=== PATIENT | male | born 1945 | race Caucasian/White ===

== ENCOUNTER → 2017-04-05 | Outpatient (CLI) | payer OTHER ==
[2017-04-05 10:32] LABS: MEAN CORPUSCULAR HEMOGLOBIN 31.2 pg (27.0-33.0); MEAN CORPUSCULAR HGB CONC 34.9 g/dl (32.0-36.5); MEAN CORPUSCULAR VOLUME 89.6 fl (80.0-96.0); RED CELL DISTRIBUTION WIDTH 13.3 % (11.5-14.5); WHITE BLOOD COUNT 7.4 K/mm3 (4.0-10.0)
[2017-04-12 00:06] LABS: SJOGREN'S ANTI SS-A <0.2 AI (0.0-0.9); SJOGREN'S ANTI SS-B <0.2 AI (0.0-0.9); T PALLIDUM AB (FTA-AB) Non Reactive (Non Reactive)
== END ==
LOC: M LAB 09:44
PROVIDERS: ATTEND Ophthalmology
DX: H18.899 Other specified disorders of cornea, unspecified eye (principal); Z79.899 Other long term (current) drug therapy

== ENCOUNTER → 2017-04-28 | Day surgery (SDC) | payer OTHER ==
[~2017-04-28] VITALS: Ht 172.7 cm; Wt 81.6 kg
[~2017-04-28] MED LIST: BALANCED SALT IRRIGATION SOLUTION 500ML BAG (FOR OR EYE MACHINE) As Ordered ONE; BESI0.6S OU; DORZ2OPD OU; DOXY50CA PO; LATA5OPD OU; LIDOCAINE 2% W/EPIN INJ 20ML **PRES FREE As Ordered ONE; LIDOCAINE 4% INJ 5 ML AMP As Ordered ONE; LR 1,000 ML IV SCH; MIDAZOLAM INJ 2 MG/2 ML VIAL (J2250) As Ordered ONE; OFLOXACIN 0.3 % (OCUFLOX) OPTH SOL 5ML As Ordered ONE; OFLOXACIN 0.3 % (OCUFLOX) OPTH SOL 5ML OS ONE; PHENYLEPHRINE 2.5% OPHTH SOL 2ML OS ONE; POVIDONE-IODINE 5% OPHTH PREP SOL 30ML As Ordered ONE; PRED20TA PO; PREV15CA PO; PROPARACAINE 0.5% OPHTH SOL 15ML OS ONE; TOBRADEX OPHTH OINT 3.5 GM As Ordered ONE; TROPICAMIDE 1% OPHTH SOLN 2ML OS ONE; TYLE325T5 PO; fentaNYL 100 MCG/2 ML INJECTION (J3010) As Ordered ONE
[2017-04-28 17:59] VITALS: BP 146/78
--- NOTE | 2017-04-30 07:43 | RO ---
DATE OF PROCEDURE: 04/28/2017 PREOPERATIVE DIAGNOSIS: Corneal melt of the left eye. POSTOPERATIVE DIAGNOSIS: Corneal melt of the left eye. PROCEDURE: Conjunctival resection, placement of multilayered amniotic membrane, temporary tarsorrhaphy of the left eye. SURGEON: Jim Vazquez D.O. SOFTWARE TEST AND VALIDATION ENGINEER: ANESTHESIA: Local with monitored anesthesia care (MAC), subconjunctival (2% lidocaine with epinephrine). DESCRIPTION OF PROCEDURE: The patient was identified in the preoperative area. Consents were reviewed, and the correct eye was marked. The patient was then transferred to the operating room. The eye was prepped and draped in a sterile fashion. The eyelids were isolated with Tegaderm, and a wide lid speculum was placed. A bandage contact lens was removed from the eye and discarded. Two conjunctival wedge resections were performed of approximately 3 x 3 mm in the areas of corneal thinning, and wet-field cautery was applied to the bleeders , and then the area was dried meticulously with weck mac. Two areas of corneal thinning were measured to be approximately 1.5 to 2 x 2 mm in diameter, and an amniotic membrane graft was prepared to place over these by oversizing by 2 mm. Two 2 x 2 mm grafts were cut and placed with the basement membrane facing down, and then Tissel glue was placed to adhere these to the corneal surface. The cornea size was measured to be approximately 12 x 12 mm. A large piece of amniotic membrane was prepared and measured to be approximately 12 mm and was placed basement membrane down on the entire cornea and was secured down with four 10-0 nylon sutures in the four corners, and then Tissel glue was placed to adhere it to the patient's cornea. Another layer of amniotic membrane of the same size was placed and then secured down with Tissel glue. A collagen contact lens was placed over the surface of the eye, and the wire lid speculum was removed, and the Tegaderm was removed. Using a 5-0 double-armed nylon suture, a central temporary tarsorrhaphy was performed and tied into position. The patient was then discharged to the postoperative care unit in a stable condition. PING
== END | disposition home or self-care (01) ==
LOC: M SDC 15:49
PROVIDERS: ATTEND Ophthalmology
DX: H18.892 Other specified disorders of cornea, left eye (principal); H40.9 Unspecified glaucoma; E11.9 Type 2 diabetes mellitus without complications; K21.9 Gastro-esophageal reflux disease without esophagitis; M54.9 Dorsalgia, unspecified; M25.559 Pain in unspecified hip; Z79.899 Other long term (current) drug therapy; I49.3 Ventricular premature depolarization; Z87.891 Personal history of nicotine dependence
CPT/HCPCS: 65780; 67875; C1762; J2250; J3010

== ENCOUNTER → 2017-07-07 | Outpatient (REF) | payer OTHER ==
[~2017-07-07] MED LIST changes: -BALANCED SALT IRRIGATION SOLUTION 500ML BAG (FOR OR EYE MACHINE) As Ordered ONE; -LIDOCAINE 2% W/EPIN INJ 20ML **PRES FREE As Ordered ONE; -LIDOCAINE 4% INJ 5 ML AMP As Ordered ONE; -LR 1,000 ML IV SCH; -MIDAZOLAM INJ 2 MG/2 ML VIAL (J2250) As Ordered ONE; -OFLOXACIN 0.3 % (OCUFLOX) OPTH SOL 5ML As Ordered ONE; -OFLOXACIN 0.3 % (OCUFLOX) OPTH SOL 5ML OS ONE; -PHENYLEPHRINE 2.5% OPHTH SOL 2ML OS ONE; -POVIDONE-IODINE 5% OPHTH PREP SOL 30ML As Ordered ONE; -PROPARACAINE 0.5% OPHTH SOL 15ML OS ONE; -TOBRADEX OPHTH OINT 3.5 GM As Ordered ONE; -TROPICAMIDE 1% OPHTH SOLN 2ML OS ONE; -fentaNYL 100 MCG/2 ML INJECTION (J3010) As Ordered ONE
[2017-07-07 15:58] LABS: ALBUMIN 3.8 GM/DL (3.2-5.2); ALBUMIN/GLOBULIN RATIO 1.41 (1.00-1.93); ALKALINE PHOSPHATASE 73 U/L (45-117); ALT/SGPT 45 U/L (12-78); ANION GAP 11 MEQ/L (8-16); AST/SGOT 18 U/L (15-37); BILIRUBIN,TOTAL 0.5 MG/DL (0.2-1.0); BLOOD UREA NITROGEN 16 MG/DL (7-18); CALCIUM LEVEL 8.8 MG/DL (8.8-10.2); CARBON DIOXIDE LEVEL 26 MEQ/L (21-32); CHLORIDE LEVEL 108 MEQ/L (98-107); CREATININE FOR GFR 0.96 MG/DL (0.70-1.30); GLOMERULAR FILTRATION RATE > 60.0 (>42); GLUCOSE, FASTING 108 MG/DL (83-110); POTASSIUM SERUM 4.5 MEQ/L (3.5-5.1); SODIUM LEVEL 145 MEQ/L (136-145); TOTAL PROTEIN 6.5 GM/DL (6.4-8.2)
[2017-07-07 16:00] LABS: BASO # 0.1 K/mm3 (0.0-0.2); BASO % 0.7 % (0.0-1.0); EOS % 0.1 % (0.0-3.0); LARGE UNSTAINED CELL # 0.1 K/mm3 (0.0-0.4); LARGE UNSTAINED CELL % 0.8 % (0.0-4.0); LYMPH # 0.9 K/mm3 (1.5-4.5); LYMPH % 9.7 % (24.0-44.0); MEAN CORPUSCULAR HEMOGLOBIN 31.6 pg (27.0-33.0); MEAN CORPUSCULAR HGB CONC 33.3 g/dl (32.0-36.5); MEAN CORPUSCULAR VOLUME 94.8 fl (80.0-96.0); MONO # 0.3 K/mm3 (0.0-0.8); MONO % 3.4 % (0.0-5.0); NEUTROPHILS % 85.2 % (36.0-66.0); PLATELET COUNT, AUTOMATED 214 k/mm3 (150-450); RED CELL DISTRIBUTION WIDTH 16.6 % (11.5-14.5); WHITE BLOOD COUNT 8.2 K/mm3 (4.0-10.0)
[2017-07-07 16:28] LABS: ERYTHROCYTE SEDIMENTATION RATE 20 mm/hr (0-20)
[2017-07-14 14:25] LABS: VARICELLA ZOSTER VIRUS PCR Negative (Negative)
== END ==
LOC: M SFHCPLAZ 12:48
PROVIDERS: ATTEND Internal Medicine Infectious Disease
DX: R21 Rash and other nonspecific skin eruption (principal)
CPT/HCPCS: 36415; 80053; 85025; 85652; 86140; 86695; 86696; 87529; 87798; G0463

== ENCOUNTER → 2018-05-24 | Outpatient (CLI) | payer OTHER ==
[2018-05-24 09:10] LABS: HEMATOCRIT 47.2 % (42.0-52.0); MEAN CORPUSCULAR HEMOGLOBIN 29.9 pg (27.0-33.0); MEAN CORPUSCULAR HGB CONC 33.9 g/dl (32.0-36.5); MEAN CORPUSCULAR VOLUME 88.2 fl (80.0-96.0); PLATELET COUNT, AUTOMATED 204 10^3/uL (150-450); RED BLOOD COUNT 5.35 10^6/uL (4.30-6.10); WHITE BLOOD COUNT 6.5 10^3/uL (4.0-10.0)
[2018-05-24 09:34] LABS: ALBUMIN 4.3 GM/DL (3.2-5.2); ALKALINE PHOSPHATASE 85 U/L (45-117); ALT/SGPT 29 U/L (12-78); ANION GAP 6 MEQ/L (8-16); AST/SGOT 19 U/L (7-37); BILIRUBIN,TOTAL 0.4 MG/DL (0.2-1.0); BLOOD UREA NITROGEN 15 MG/DL (7-18); CALCIUM LEVEL 9.2 MG/DL (8.8-10.2); CARBON DIOXIDE LEVEL 31 MEQ/L (21-32); CHLORIDE LEVEL 108 MEQ/L (98-107); GLOMERULAR FILTRATION RATE > 60.0 (>42); GLUCOSE, FASTING 97 MG/DL (70-100); SODIUM LEVEL 145 MEQ/L (136-145); TOTAL PROTEIN 7.6 GM/DL (6.4-8.2)
[2018-05-24 09:56] LABS: ERYTHROCYTE SEDIMENTATION RATE 5 mm/hr (0-20)
[2018-05-24 10:11] LABS: INR 1.06
== END ==
LOC: M LAB 08:19
DX: Z01.818 Encounter for other preprocedural examination (principal); I45.10 Unspecified right bundle-branch block; M16.11 Unilateral primary osteoarthritis, right hip; Z79.01 Long term (current) use of anticoagulants
CPT/HCPCS: 71046

== ENCOUNTER 2018-06-12 06:38 | Inpatient (IN) | payer OTHER ==
[~2018-06-12 06:38] MED LIST changes: -BESI0.6S OU; -DORZ2OPD OU; -DOXY50CA PO; -LATA5OPD OU; +LR 1,000 ML IV; -PRED20TA PO; -PREV15CA PO; -TYLE325T5 PO
[2018-06-12] MEDS ORDERED: MIDAZOLAM INJ 2 MG/2 ML VIAL (J2250) As Ordered (08:25)
[2018-06-12] MEDS ORDERED: fentaNYL 100 MCG/2 ML INJECTION (J3010) As Ordered (08:25)
[2018-06-12] MEDS ORDERED: LIDOCAINE 2% INJ 100 MG/5 ML SDV (FOR ANES.) As Ordered (08:26)
[2018-06-12] MEDS ORDERED: PROPOFOL 200 MG/20 ML VIAL As Ordered (08:26)
[2018-06-12] MEDS ORDERED: KETAMINE HCL 200 MG/20 ML VIAL As Ordered (09:26)
[2018-06-12] MEDS: EPINEPHrine INJ 1 MG/ML 1ML AMP As Ordered (09:44)
[2018-06-12] MEDS: ceFAZolin 1GM INJ (J0690 PER 500MG) As Ordered (09:46)
[2018-06-12] MEDS: TRANEXAMIC ACID 100 MG/ML 10ML VIAL As Ordered (09:47)
[2018-06-12] MEDS ORDERED: ONDANSETRON 4MG/2ML VIAL (J2405) As Ordered (09:47)
[2018-06-12] MEDS ORDERED: ePHEDrine SULFATE 25 MG/5 ML(5MG/ML) SYRINGE As Ordered (10:16)
[2018-06-12] MEDS ORDERED: PHENYLephrine HCL 500 MCG/5 ML (100MCG/ML) SYRINGE (J2370) As Ordered (10:17)
[2018-06-12] MEDS: LR 1,000 ML IV ×3 (10:43→12:30)
[2018-06-12] MEDS ORDERED: ONDANSETRON 4MG/2ML VIAL (J2405) IV ×4 (11:00→12:30)
[2018-06-12] MEDS ORDERED: METOCLOPRAMIDE INJ 10MG/2ML VIAL (J2765) IV ×2 (11:00→12:30)
[2018-06-12] MEDS ORDERED: PERCOCET 5MG/325MG TAB PO ×2 (11:00→12:30)
[2018-06-12] MEDS ORDERED: fentaNYL 100 MCG/2 ML INJECTION (J3010) IV ×2 (11:00→12:30)
[2018-06-12] MEDS ORDERED: NALBUPHINE HCL 10 MG/ML AMP (J2300) IV (11:00)
[2018-06-12] MEDS ORDERED: EPIDURAL/PCA KEYS XX (11:00)
[2018-06-12] MEDS ORDERED: NALOXONE INJ 0.4 MG/1 ML VIAL (J2310) IV (11:00)
[2018-06-12] MEDS ORDERED: ACETAMINOPHEN TAB 650MG DOSE (2X325MG) PO (11:00)
[2018-06-12] MEDS ORDERED: diphenhydrAMINE INJ 50MG/ML VIAL (J1200) IV (11:00)
[2018-06-12] MEDS ORDERED: FLEET ENEMA PR (11:00)
[2018-06-12] MEDS: MORPHINE 1MG/ML IN 0.9% NACL 100ML IV BAG IV (11:15)
[2018-06-12] MEDS: PHENYLephrine HCL 500 MCG/5 ML (100MCG/ML) SYRINGE (J2370) IV (12:30)
[2018-06-12] MEDS ORDERED: LR 250 ML IV (12:30)
[2018-06-12] MEDS ORDERED: PHENYLephrine HCL 500 MCG/5 ML (100MCG/ML) SYRINGE (J2370) (14:03)
[2018-06-13] MEDS: LR 1,000 ML IV (00:31)
[2018-06-13] MEDS: RIVAROXABAN 10 MG TAB (XARELTO) PO (05:20)
[2018-06-13] MEDS ORDERED: ONDANSETRON 4 MG TAB (S0181) PO (06:45)
[2018-06-13 08:08] LABS: HEMATOCRIT 35.4 % (42.0-52.0); MEAN CORPUSCULAR HEMOGLOBIN 29.8 pg (27.0-33.0); MEAN CORPUSCULAR HGB CONC 33.9 g/dl (32.0-36.5); MEAN CORPUSCULAR VOLUME 87.8 fl (80.0-96.0); PLATELET COUNT, AUTOMATED 238 10^3/uL (150-450); RED BLOOD COUNT 4.03 10^6/uL (4.30-6.10); RED CELL DISTRIBUTION WIDTH 12.9 % (11.5-14.5); WHITE BLOOD COUNT 13.6 10^3/uL (4.0-10.0)
[2018-06-13] MEDS: SENOKOT S TAB PO ×2 (09:31→20:06)
[2018-06-13] MEDS: OMEPRAZOLE 20 MG CAP PO (09:32)
[2018-06-13] MEDS: LISINOPRIL 10 MG TAB PO (09:32)
[2018-06-13] MEDS: PERCOCET 5MG/325MG TAB PO ×3 (09:33→20:07)
[2018-06-13] MEDS: MIRALAX *UNIT DOSE* 17GM PACKET PO (09:34)
[2018-06-13] MEDS: MOM 30ML SUSPENSION UDC PO (09:34)
[2018-06-14] MEDS: RIVAROXABAN 10 MG TAB (XARELTO) PO (05:19)
[2018-06-14 08:24] LABS: HEMATOCRIT 33.2 % (42.0-52.0); HEMOGLOBIN 11.4 g/dl (13.5-17.5); MEAN CORPUSCULAR HEMOGLOBIN 29.9 pg (27.0-33.0); MEAN CORPUSCULAR HGB CONC 34.3 g/dl (32.0-36.5); MEAN CORPUSCULAR VOLUME 87.1 fl (80.0-96.0); PLATELET COUNT, AUTOMATED 239 10^3/uL (150-450); RED BLOOD COUNT 3.81 10^6/uL (4.30-6.10); RED CELL DISTRIBUTION WIDTH 12.9 % (11.5-14.5); WHITE BLOOD COUNT 16.1 10^3/uL (4.0-10.0)
[2018-06-14] MEDS: OMEPRAZOLE 20 MG CAP PO (08:48)
[2018-06-14] MEDS: SENOKOT S TAB PO ×2 (08:48→21:58)
[2018-06-14] MEDS: MOM 30ML SUSPENSION UDC PO (08:48)
[2018-06-14] MEDS: PERCOCET 5MG/325MG TAB PO ×2 (08:49→21:58)
[2018-06-14] MEDS: LISINOPRIL 10 MG TAB PO (08:49)
[2018-06-14] MEDS: MIRALAX *UNIT DOSE* 17GM PACKET PO (08:50)
[2018-06-14] MEDS: TAMSULOSIN 0.4 MG CAP PO (21:58)
[2018-06-15] MEDS: PERCOCET 5MG/325MG TAB PO ×4 (03:19→21:07)
[2018-06-15] MEDS: RIVAROXABAN 10 MG TAB (XARELTO) PO (06:28)
[2018-06-15] MEDS: LR 1,000 ML IV (06:29)
[2018-06-15] MEDS ORDERED: TAMSULOSIN 0.4 MG CAP PO (09:00)
[2018-06-15] MEDS: MIRALAX *UNIT DOSE* 17GM PACKET PO (09:51)
[2018-06-15] MEDS: MOM 30ML SUSPENSION UDC PO (09:53)
[2018-06-15] MEDS: TAMSULOSIN 0.4 MG CAP PO ×2 (09:55→21:06)
[2018-06-15] MEDS: LISINOPRIL 10 MG TAB PO (09:55)
[2018-06-15] MEDS: SENOKOT S TAB PO ×2 (09:55→21:06)
[2018-06-15] MEDS: OMEPRAZOLE 20 MG CAP PO (09:56)
[2018-06-16] MEDS: RIVAROXABAN 10 MG TAB (XARELTO) PO (05:47)
[2018-06-16] MEDS: PERCOCET 5MG/325MG TAB PO ×2 (05:48→13:50)
[2018-06-16] MEDS: OMEPRAZOLE 20 MG CAP PO (09:28)
[2018-06-16] MEDS: SENOKOT S TAB PO (09:28)
[2018-06-16] MEDS: TAMSULOSIN 0.4 MG CAP PO (09:28)
[2018-06-16] MEDS: MIRALAX *UNIT DOSE* 17GM PACKET PO (09:29)
[2018-06-16] MEDS: MOM 30ML SUSPENSION UDC PO (09:29)
[2018-06-16] MEDS: LISINOPRIL 10 MG TAB PO (09:29)
== END 2018-06-16 14:55 | disposition home health service (06) | DRG 470 ==
LOC: M OR 06:38 → M MS5PR 13:00
PROC: 0SR902Z Replacement of Right Hip Joint with Metal on Polyethylene Synthetic Substitute, Open Approach (ICD-10-PCS; principal; 2018-06-12 09:00)
DX: M16.11 Unilateral primary osteoarthritis, right hip (principal); K21.9 Gastro-esophageal reflux disease without esophagitis; R26.89 Other abnormalities of gait and mobility; H40.9 Unspecified glaucoma; Z87.891 Personal history of nicotine dependence

== ENCOUNTER 2024-07-22 16:52 | Emergency (ER) | payer MEDICARE ==
[~2024-07-22 16:52] MED LIST changes: +BESI0.6S OU; +CITR500T PO; +DORZ2OPD OU; +DOXY50CA PO; +LATA0.0013 OU; +LISI10TA22 PO; -LR 1,000 ML IV; +PERC5TAB12 PO; +PRED20TA PO; +PREV15CA PO; +REST0.05 OU; +THERSOL3 OU; +TYLE325T5 PO; +XARE10TA PO
[2024-07-22 17:09] VITALS: TEMP 100.6
[2024-07-22] MEDS: NS 1,000 ML IV SCH (17:21)
[2024-07-22] MEDS: ONDANSETRON 4MG 2ML VIAL IV ONE (17:21)
[2024-07-22] MEDS: NS 500 ML IV ONE (17:22)
[2024-07-22 17:36] LABS: BASO % 0.2 % (0.0-1.0); HEMATOCRIT 44.5 % (42.0-52.0); HEMOGLOBIN 15.4 g/dl (13.5-17.5); LYMPH # 0.5 10^3/uL (1.5-5.0); LYMPH % 6.3 % (24.0-44.0); MEAN CORPUSCULAR HEMOGLOBIN 30.6 pg (27.0-33.0); MEAN CORPUSCULAR HGB CONC 34.6 g/dl (32.0-36.5); MEAN CORPUSCULAR VOLUME 88.3 fl (80.0-96.0); MONO # 0.9 10^3/uL (0.0-0.8); MONO % 10.7 % (2.0-8.0); NEUTROPHILS # 6.8 10^3/uL (1.5-8.5); NEUTROPHILS % 82.4 % (36.0-66.0); PLATELET COUNT, AUTOMATED 181 10^3/uL (150-450); RED BLOOD COUNT 5.04 10^6/uL (4.30-6.10); WHITE BLOOD COUNT 8.2 10^3/uL (4.0-10.0)
[2024-07-22 17:53] LABS: ALBUMIN 3.7 G/DL (3.2-5.2); BILIRUBIN,DIRECT 0.3 MG/DL (<0.4); BILIRUBIN,TOTAL 0.7 MG/DL (0.3-1.2); CALCIUM LEVEL 8.4 MG/DL (8.3-10.6); CREATININE FOR GFR 1.3 MG/DL (0.70-1.30); GLOMERULAR FILTRATION RATE 56.7 (>42); POTASSIUM SERUM 4.3 MMOL/L (3.5-5.1); TOTAL PROTEIN 6.9 G/DL (5.7-8.2)
[2024-07-22 18:00] VITALS: BP 152/78; O2SAT 96
[2024-07-22] MEDS: ACETAMINOPHEN 500 MG TAB PO ONE (18:39)
[2024-07-22] MEDS ORDERED: NIRM1TAB13 PO (18:43)
== END 2024-07-22 19:24 | disposition home or self-care (01) ==
LOC: M ED 16:52 → EDBD 16:52 → M ED 19:24
DX: U07.1 COVID-19 (principal); I10 Essential (primary) hypertension; I45.10 Unspecified right bundle-branch block; Z79.1 Long term (current) use of non-steroidal anti-inflammatories (NSAID); Z79.899 Other long term (current) drug therapy; Z79.01 Long term (current) use of anticoagulants
CPT/HCPCS: 36415; 71045; 80048; 80076; 83690; 85025; 87486; 87581; 87633; 87798; 93005; 93041; 96374; 99285; J2405

== ENCOUNTER → 2024-08-09 | Outpatient (CLI) | payer MEDICARE ==
[~2024-08-09] MED LIST changes: +NIRM1TAB13 PO
[2024-08-09 14:19] LABS: HEMOGLOBIN A1c 5.4 % (4.0-6.0)
[2024-08-09 14:28] LABS: FOLATE 6.4 NG/ML (>5.4); FREE THYROXINE INDEX 3.5 % (1.4-3.8); THYROXINE (T4) 10.6 UG/DL (4.5-10.9)
[2024-08-09 15:02] LABS: THYROID STIMULATING HORMONE 1.169 uIU/ML (0.55-4.78)
[2024-08-13 14:16] LABS: ANA SCREEN, IFA NEGATIVE (NEGATIVE)
[2024-08-14 13:47] LABS: VITAMIN B1 LEVEL WHOLE BLOOD 129 nmol/L (78-185)
== END ==
LOC: M PLALAB 11:09
PROVIDERS: ATTEND Psychiatry & Neurology Neurology
DX: E53.8 Deficiency of other specified B group vitamins (principal); E11.9 Type 2 diabetes mellitus without complications; E07.9 Disorder of thyroid, unspecified; R41.3 Other amnesia

== ENCOUNTER → 2025-02-28 | Outpatient (REF) | payer MEDICARE ==
[~2025-02-28] MED LIST changes: +ATOR40TA75 PO
[2025-02-28 19:23] LABS: FREE T4 1.17 NG/DL (0.89-1.76); THYROID STIMULATING HORMONE 0.963 uIU/ML (0.55-4.78)
== END ==
LOC: M LAB REF 16:57
PROVIDERS: ATTEND Internal Medicine Nephrology
DX: E03.9 Hypothyroidism, unspecified (principal)